=== PATIENT | male | born 1985 | race Caucasian/White ===

== ENCOUNTER 2023-05-19 20:45 | Emergency (ER) | payer SELFPAY ==
[2023-05-19] MEDS ORDERED: Ondansetron 4 MG Tab.DIS PO ONE (22:12)
[2023-05-19] MEDS ORDERED: Ibuprofen 400 MG Tab PO ONE (22:12)
[2023-05-19] MEDS ORDERED: Acetaminophen/HYDROcodone 325-5 MG Tab PO ONE (22:12)
[2023-05-19] MEDS ORDERED: Lidocaine 1% 5 ML VIAL INJECT ONE (22:12)
== END 2023-05-19 23:15 | disposition home or self-care (01) ==
LOC: MW.ED 20:45
DX: L60.0 Ingrowing nail (principal)
CPT/HCPCS: 11750; 99283; A9270; J3490